=== PATIENT | male | born 1980 | race Hispanic/Latino ===

== ENCOUNTER 2017-12-04 22:38 | Emergency (ER) | payer OTHER ==
[2017-12-04] MEDS ORDERED: ASPIRIN 325 MG TABLET ONE (23:10)
[2017-12-04 23:16] LABS: BASOPHILS % (AUTO) 0.4 % (0.0-5.0); EOSINOPHILS % (AUTO) 4.8 % (0.0-8.0); HEMATOCRIT 35.3 % (42-54); MEAN CORPUSCULAR HEMOGLOBIN 27.8 pg (27.0-33.0); MEAN CORPUSCULAR VOLUME 81.7 fL (79-99); NEUTROPHILS % (AUTO) 64.8 % (40.0-77.0); PLATELET COUNT (AUTO) 258 K/uL (130-400); RED BLOOD CELL COUNT(AUTO) 4.32 MIL/uL (4.50-6.20); RED CELL DISTRIBUTION WIDTH 12.1 % (11.0-15.5)
[2017-12-04 23:28] LABS: ALBUMIN 3.5 g/dL (3.5-5.0); BILIRUBIN,TOTAL 0.4 mg/dL (0.2-1.0); CREATININE 1.4 mg/dL (0.5-1.5); POTASSIUM 4.4 mmol/L (3.5-5.1); TOTAL PROTEIN, SERUM 7.9 g/dL (6.0-8.3)
[2017-12-04] MEDS ORDERED: LIDOCAINE HCL 2% VISCOUS 15 ML UDCUP ONE (23:30)
[2017-12-04] MEDS ORDERED: MAG HYDROX/AL HYDROX/SIMETH ES 30 ML SUSP UDCUP ONE (23:30)
[2017-12-04] MEDS ORDERED: SODIUM CHLORIDE 0.9% 1000ML 1,000 ML IV ONE ×2 (23:31→23:43)
[2017-12-04] MEDS ORDERED: ONDANSETRON HCL 4 MG/2 ML VIAL ONE (23:31)
[2017-12-04] MEDS ORDERED: INSULIN HUMULIN R 100 UNIT/ML 3ML ONE (23:45)
[2017-12-04 23:56] LABS: AMPHET/METH SCREEN,URINE NEGATIVE (NEGATIVE); BARBITURATE SCREEN, URINE NEGATIVE (NEGATIVE); BENZODIAZEPINES SCREEN,URINE NEGATIVE (NEGATIVE); CANNABINOID SCREEN,URINE NEGATIVE (NEGATIVE); COCAINE SCREEN,URINE NEGATIVE (NEGATIVE); OPIATE SCREEN,URINE NEGATIVE (NEGATIVE); PHENCYCLIDINE SCREEN,URINE NEGATIVE (NEGATIVE)
[2017-12-05 00:19] LABS: B-TYPE NATRIURETIC PEPTIDE 24 pg/mL (0-100)
[2017-12-05] MEDS ORDERED: IOHEXOL-350 75 ML VIAL IV ONE (02:42)
== END 2017-12-05 04:24 | disposition home or self-care (01) ==
LOC: EDH 22:38
DX: R07.89 Other chest pain (principal); J18.8 Other pneumonia, unspecified organism; E11.9 Type 2 diabetes mellitus without complications
CPT/HCPCS: 36415; 71045; 71275; 80053; 80305; 82550; 83880; 84484; 85025; 85378; 93005; 94761; 96372; 99285; J1815; J2405; J7030 ×2; Q9967

== ENCOUNTER 2019-05-16 17:34 | Inpatient (IN) | payer OTHER ==
[~2019-05-16] VITALS: Ht 162.6 cm; Wt 53.8 kg
[2019-05-16] MEDS ORDERED: SODIUM CHLORIDE 0.9% 1000ML 1,000 ML IV ONE ×2 (17:55→19:49)
[2019-05-16] MEDS ORDERED: ONDANSETRON HCL 4 MG/2 ML VIAL ONE (17:55)
[2019-05-16 18:06] LABS: BASOPHILS % (AUTO) 0.3 % (0.0-5.0); EOSINOPHILS % (AUTO) 0.1 % (0.0-8.0); HEMATOCRIT 39.2 % (42-54); LYMPHOCYTES % (AUTO) 9.7 % (21.0-51.0); MEAN CORPUSCULAR HEMOGLOBIN 26.6 pg (27.0-33.0); MEAN CORPUSCULAR HGB CONC 32.4 g/dL (32.0-36.0); MONOCYTES % (AUTO) 1.3 % (3.0-13.0); NEUTROPHILS % (AUTO) 87.5 % (40.0-77.0); PLATELET COUNT (AUTO) 298 K/uL (130-400); RED BLOOD CELL COUNT(AUTO) 4.78 MIL/uL (4.50-6.20); RED CELL DISTRIBUTION WIDTH 12.7 % (11.0-15.5); WHITE BLOOD COUNT (AUTO) 15.4 K/uL (4.8-10.8)
[2019-05-16] MEDS ORDERED: MORPHINE SULFATE 4 MG/1ML SYG ONE (18:12)
[2019-05-16] MEDS ORDERED: MORPHINE SULFATE 2 MG/ML 1ML SYG ONE (18:13)
[2019-05-16] MEDS ORDERED: METOCLOPRAMIDE 10 MG/2 ML VIAL ONE (18:14)
[2019-05-16 18:20] LABS: ALBUMIN 4.5 g/dL (3.5-5.0); BILIRUBIN,TOTAL 0.9 mg/dL (0.2-1.0); POTASSIUM 3.9 mmol/L (3.5-5.1); TOTAL PROTEIN, SERUM 8.9 g/dL (6.0-8.3)
[2019-05-16 18:35] LABS: ABG BASE EXCESS -16.9 mmol/L (-2.0-3.0); ABG HCO3 10.4 mmol/L (21.0-28.0); ABG OXYGEN SATURATION 95.6 % (95.0-99.0); ABG PCO2 30 mmHg (35-48)
[2019-05-16] MEDS ORDERED: CEFTRIAXONE SODIUM 1 GM ONE (18:57)
[2019-05-16] MEDS ORDERED: SODIUM CHLORIDE 0.9% 1000ML 2,000 ML IV ONE (18:57)
[2019-05-16] MEDS ORDERED: SODIUM CHLORIDE 0.9% 100 ML IV ONE ×2 (18:59→19:26)
[2019-05-16 19:17] LABS: APPEARANCE,URINE Clear (CLEAR); BILIRUBIN,URINE Negative (NEGATIVE); COLOR,URINE Yellow (YELLOW); GLUCOSE, URINE (UA) >=1000 mg/dL (NEGATIVE); KETONES,URINE >=80 mg/dL (NEGATIVE); LEUKOCYTE ESTERASE ,URINE Negative (NEGATIVE); NITRATE,URINE Negative (NEGATIVE); OCCULT BLOOD,URINE Small (NEGATIVE); PROTEIN,URINE POS 2+ mg/dL (NEGATIVE); UROBILINOGEN,URINE 0.2 mg/dL (0.2-1.0)
[2019-05-16 19:25] LABS: BACTERIA,URINE None Seen /HPF (None Seen); RBC,URINE 0-1 /HPF (0-1); SQUAMOUS EPITHELIAL CELL,UR 0-2 /HPF (0-2); WBC,URINE None Seen /HPF (0-1)
[2019-05-16] MEDS ORDERED: INSULIN HUMULIN R 100 UNIT/ML 3ML ONE (19:25)
[2019-05-16] MEDS ORDERED: POTASSIUM CHLORIDE 20MEQ/100ML 100 ML IV ONE (19:28)
[2019-05-16] MEDS ORDERED: LACTATED RINGERS 1000ML 2,000 ML IV ONE (20:05)
[2019-05-16] MEDS ORDERED: SODIUM BICARB 50MEQ 50ML VIAL IV SCH (20:15)
[2019-05-16] MEDS ORDERED: MAGNESIUM 2GM PREMIX 50ML 50 ML IV SCH (20:15)
[2019-05-16] MEDS ORDERED: INSULIN REGULAR, HUMAN 3ML 100 UNIT in SODIUM CHLORIDE 0.9% 99 ML IV PRN ×2 (20:15)
[2019-05-16] MEDS: LACTATED RINGERS 1000ML 1,000 ML IV SCH ×2 (20:15→21:16)
[2019-05-16] MEDS ORDERED: POTASSIUM CHLORIDE 10% ELIXIR 20 MEQ/15 ML UDCUP PO PRN (20:15)
[2019-05-16] MEDS ORDERED: SODIUM BICARB 50MEQ 50ML VIAL ONE (20:19)
[2019-05-16] MEDS ORDERED: HYDROMORPHONE 1 MG/1 ML AMP ONE (20:19)
[2019-05-16 22:18] LABS: CREATININE 1.4 mg/dL (0.5-1.5); POTASSIUM 4.5 mmol/L (3.5-5.1)
[2019-05-17] VITALS (20 sets, daily range): BP systolic 126–180; BP diastolic 79–104
[2019-05-17 03:44] LABS: BASOPHILS % (AUTO) 0.2 % (0.0-5.0); HEMATOCRIT 31.4 % (42-54); LYMPHOCYTES % (AUTO) 9.3 % (21.0-51.0); MEAN CORPUSCULAR HEMOGLOBIN 26.3 pg (27.0-33.0); MEAN CORPUSCULAR HGB CONC 32.8 g/dL (32.0-36.0); MEAN CORPUSCULAR VOLUME 80.1 fL (79-99); MONOCYTES % (AUTO) 9.7 % (3.0-13.0); NEUTROPHILS % (AUTO) 80.1 % (40.0-77.0); PLATELET COUNT (AUTO) 222 K/uL (130-400); RED BLOOD CELL COUNT(AUTO) 3.92 MIL/uL (4.50-6.20); RED CELL DISTRIBUTION WIDTH 13.2 % (11.0-15.5); WHITE BLOOD COUNT (AUTO) 15.6 K/uL (4.8-10.8)
[2019-05-17 03:54] LABS: CREATININE 1.4 mg/dL (0.5-1.5); POTASSIUM 3.9 mmol/L (3.5-5.1)
[2019-05-17 04:08] LABS: ALBUMIN 3.3 g/dL (3.5-5.0); BILIRUBIN,TOTAL 0.7 mg/dL (0.2-1.0); PHOSPHORUS 2.5 mg/dL (2.5-4.9); TOTAL PROTEIN, SERUM 7.3 g/dL (6.0-8.3)
[2019-05-17] MEDS ORDERED: ONDANSETRON HCL 4 MG/2 ML VIAL ONE ×2 (05:22→09:29)
[2019-05-17 07:32] LABS: CREATININE 1.4 mg/dL (0.5-1.5); POTASSIUM 3.8 mmol/L (3.5-5.1)
[2019-05-17 09:11] LABS: AMPHET/METH SCREEN,URINE NEGATIVE (NEGATIVE); BARBITURATE SCREEN, URINE NEGATIVE (NEGATIVE); BENZODIAZEPINES SCREEN,URINE NEGATIVE (NEGATIVE); CANNABINOID SCREEN,URINE NEGATIVE (NEGATIVE); COCAINE SCREEN,URINE NEGATIVE (NEGATIVE); OPIATE SCREEN,URINE NEGATIVE (NEGATIVE); PHENCYCLIDINE SCREEN,URINE NEGATIVE (NEGATIVE)
[2019-05-17] MEDS ORDERED: SODIUM CHLORIDE 0.9% 100 ML IV ONE (09:32)
[2019-05-17] MEDS ORDERED: CEFTRIAXONE SODIUM 1 GM ONE (09:32)
[2019-05-17 13:37] LABS: CREATININE 1.5 mg/dL (0.5-1.5); POTASSIUM 3.8 mmol/L (3.5-5.1)
[2019-05-17] MEDS ORDERED: PROMETHAZINE HCL 25 MG/ML 1ML AMPULE IM SCH (15:00)
[2019-05-17] MEDS: ONDANSETRON HCL 4 MG/2 ML VIAL IVP PRN ×2 (15:28→22:08)
[2019-05-17 16:28] LABS: CREATININE 1.6 mg/dL (0.5-1.5); MAGNESIUM 2.2 mg/dL (1.80-2.40); POTASSIUM 3.5 mmol/L (3.5-5.1)
[2019-05-17] MEDS ORDERED: METOCLOPRAMIDE 10 MG/2 ML VIAL ONE (16:58)
[2019-05-17] MEDS: LIDOCAINE HCL-MPF 1% 2ML VIAL IJ PRN (17:03)
[2019-05-17] MEDS: POTASSIUM CHLORIDE 20MEQ/100ML 100 ML IV PRN (17:03)
--- NOTE | 2019-05-17 17:21 | NUR ---
INITIAL SW met with patient and spouse. Patient lives with spouse and two children. No home services. DME: [employer] (ins). Patient is able to complete ADL's independently and drives. PCP is Dr. Oh Higuera. Pharmacy is [facility] located in [place]. DCP is home. Patient has no insurance or benefits. He is a [place] citizen and has worked in the [place]. Patient was provided with community resources for post hospitalization follow up. Patient was also provided with Good RX card for prescriptions and educated on [facility] $4 medication program and [facility] $5 medication program. Patient is being assisted by [employer] for financial matters. Addendum: 05/17/19 at 1723 by TERE JI Amended: Links added.
[2019-05-17] MEDS: SODIUM BICARB IVP SCH (17:23)
[2019-05-17] MEDS: NACL IVP SCH (17:23)
[2019-05-17] MEDS: DEXTROSE IVP SCH (17:23)
[2019-05-17] MEDS: SYRING IVP SCH (17:23)
--- NOTE | 2019-05-17 17:26 | NUR ---
PT HAS INTRACTABLE N/V... I INFORMED Lazarus SIDDIQUI MAGNETIC DOCTOR AND RECEIVED ORDERS FOR REGLAN PRN AND TO CHECK BMP'S EVERY 6HRS. BMP/MAG ORDERS IN PLACE ALREADY
--- NOTE | 2019-05-17 19:12 | NUR ---
HAND OFF REPORT GIVEN TO TAMY SHIRLEY
[2019-05-17 22:08] LABS: CREATININE 1.6 mg/dL (0.5-1.5); MAGNESIUM 2.4 mg/dL (1.80-2.40); POTASSIUM 3.9 mmol/L (3.5-5.1)
[2019-05-17] MEDS: METOCLOPRAMIDE 10 MG/2 ML VIAL IVP PRN (23:44)
[2019-05-18] VITALS (34 sets, daily range): BP systolic 134–180; BP diastolic 74–114
[2019-05-18] MEDS: DEXTROSE IVP SCH (02:58)
[2019-05-18] MEDS: NACL IVP SCH (02:58)
[2019-05-18] MEDS: SODIUM BICARB IVP SCH (02:58)
[2019-05-18] MEDS: SYRING IVP SCH (02:58)
[2019-05-18] MEDS: ONDANSETRON HCL 4 MG/2 ML VIAL IVP PRN ×2 (03:07→09:36)
[2019-05-18 05:38] LABS: CREATININE 1.5 mg/dL (0.5-1.5); MAGNESIUM 2.4 mg/dL (1.80-2.40); POTASSIUM 3.5 mmol/L (3.5-5.1)
[2019-05-18] MEDS: METOCLOPRAMIDE 10 MG/2 ML VIAL IVP PRN ×2 (05:52→14:44)
[2019-05-18] MEDS: POTASSIUM CHLORIDE 20 MEQ ERTAB PO PRN (08:36)
[2019-05-18] MEDS: CEFTRIAXONE SODIUM 1 GM IVP SCH (08:37)
[2019-05-18] MEDS ORDERED: SODIUM CHLORIDE 0.9% 1000ML 1,000 ML IV ONE (08:53)
[2019-05-18] MEDS ORDERED: MULT-1333 PO (10:00)
[2019-05-18] MEDS ORDERED: EMPA1TAB7 PO (10:00)
[2019-05-18] MEDS ORDERED: CYCL5TAB PO (10:00)
[2019-05-18] MEDS ORDERED: PIOG45TA64 PO (10:00)
[2019-05-18] MEDS ORDERED: PRAV40TA3 PO (10:00)
[2019-05-18] MEDS ORDERED: LISI10TA7 PO (10:00)
[2019-05-18] MEDS ORDERED: ARGI500C9 PO (10:00)
[2019-05-18 10:27] LABS: CREATININE 1.6 mg/dL (0.5-1.5); MAGNESIUM 2.4 mg/dL (1.80-2.40); POTASSIUM 3.6 mmol/L (3.5-5.1)
[2019-05-18] MEDS ORDERED: LACTATED RINGERS 1000ML 1,000 ML IV ONE (12:43)
[2019-05-18] MEDS: LACTATED RINGERS 1000ML 1,000 ML IV SCH ×2 (13:35→23:30)
[2019-05-18] MEDS: HYDRALAZINE HCL 20 MG/ML VIAL IV PRN (13:55)
[2019-05-18] MEDS: PROMETHAZINE HCL 25 MG/ML 1ML AMPULE IM PRN ×2 (15:07→21:41)
[2019-05-18] MEDS: INSULIN HUMULIN R 100 UNIT/ML 3ML SQ SCH ×2 (16:30→21:55)
[2019-05-18] MEDS: METOCLOPRAMIDE 10 MG/2 ML VIAL IVP SCH ×2 (17:57→23:30)
[2019-05-18 21:13] LABS: CREATININE 1.5 mg/dL (0.5-1.5); POTASSIUM 3.6 mmol/L (3.5-5.1)
[2019-05-18] MEDS: POTASSIUM CHLORIDE 20MEQ/100ML 100 ML IV PRN (21:40)
[2019-05-18] MEDS: LIDOCAINE HCL-MPF 1% 2ML VIAL IJ PRN (21:40)
--- NOTE | 2019-05-18 23:15 | NUR ---
Judith ROBLES , KATHERINE NOTIFIED OF LAB RESULTS NA 135, K 3.6, CL 110, CO2 29, BUN 31, CR 1.5 GLUCOSE 195, SERUM KETONES 4.7.INSULIN IV GTT OFF SINCE AM, LR AT 100ML/HR, CLEAR LIQUID DIET TOLERATED. NEW ORDERS RECEIVED FOR BMP Q 6 HRS AND SERUM KETONES Q 8 HR UNTIL ANION GAP CLOSES. Addendum: 05/19/19 at 4 by BRENNAN GOLDSMITH RN RN SHOULD SAY IV INSULIN DRIP OFF TODAY
[2019-05-18] MEDS ORDERED: ACETAMINOPHEN 325 MG TAB ONE (23:27)
[2019-05-18] MEDS ORDERED: ACETAMINOPHEN 325 MG TAB PO PRN (23:30)
[2019-05-19] VITALS (27 sets, daily range): BP systolic 127–183; BP diastolic 72–116
[2019-05-19] MEDS: HYDRALAZINE HCL 20 MG/ML VIAL IV PRN ×2 (03:01→16:35)
[2019-05-19 04:35] LABS: ALBUMIN 3.2 g/dL (3.5-5.0); CREATININE 1.6 mg/dL (0.5-1.5); HEMATOCRIT 40.4 % (42-54); MAGNESIUM 2.4 mg/dL (1.80-2.40); MEAN CORPUSCULAR HEMOGLOBIN 25.9 pg (27.0-33.0); MEAN CORPUSCULAR HGB CONC 30.7 g/dL (32.0-36.0); MEAN CORPUSCULAR VOLUME 84.5 fL (79-99); PLATELET COUNT (AUTO) 240 K/uL (130-400); POTASSIUM 3.9 mmol/L (3.5-5.1); RED BLOOD CELL COUNT(AUTO) 4.78 MIL/uL (4.50-6.20); RED CELL DISTRIBUTION WIDTH 13.3 % (11.0-15.5); TOTAL PROTEIN, SERUM 7.5 g/dL (6.0-8.3); WHITE BLOOD COUNT (AUTO) 15.1 K/uL (4.8-10.8)
[2019-05-19] MEDS: METOCLOPRAMIDE 10 MG/2 ML VIAL IVP SCH ×4 (04:38→22:33)
[2019-05-19] MEDS: INSULIN HUMULIN R 100 UNIT/ML 3ML SQ SCH ×4 (06:13→21:00)
[2019-05-19] MEDS: LISINOPRIL 10 MG TABLET PO SCH (08:27)
[2019-05-19] MEDS: CEFTRIAXONE SODIUM 1 GM IVP SCH (08:27)
[2019-05-19] MEDS: LACTATED RINGERS 1000ML 1,000 ML IV SCH ×2 (09:00→21:19)
[2019-05-19 10:15] LABS: CREATININE 1.5 mg/dL (0.5-1.5); POTASSIUM 3.7 mmol/L (3.5-5.1)
[2019-05-19] MEDS: PROMETHAZINE HCL 25 MG/ML 1ML AMPULE IM PRN ×2 (12:26→18:57)
[2019-05-19 13:27] LABS: ABG BASE EXCESS -0.5 mmol/L (-2.0-3.0); ABG HCO3 24.4 mmol/L (21.0-28.0); ABG OXYGEN SATURATION 96.6 % (95.0-99.0); ABG PCO2 41 mmHg (35-48)
[2019-05-19] MEDS ORDERED: PHARMACY COMMUNICATION MISC SCH (14:30)
[2019-05-19] MEDS ORDERED: SUCRALFATE 1 GM/10 ML ONE (16:11)
[2019-05-19] MEDS ORDERED: PANTOPRAZOLE SODIUM 40 MG TABLET.DR ONE (16:13)
[2019-05-19 16:55] LABS: CREATININE 1.5 mg/dL (0.5-1.5); POTASSIUM 3.7 mmol/L (3.5-5.1)
[2019-05-19] MEDS ORDERED: FAMOTIDINE/PF 20 MG/2 ML VIAL IV SCH (21:00)
[2019-05-19] MEDS: SUCRALFATE 1 GM/10 ML PO SCH (21:13)
[2019-05-19] MEDS: PANTOPRAZOLE SODIUM 40 MG TABLET.DR PO SCH (21:13)
[2019-05-19 22:20] LABS: CREATININE 1.5 mg/dL (0.5-1.5); POTASSIUM 3.5 mmol/L (3.5-5.1)
[2019-05-19] MEDS: LIDOCAINE HCL-MPF 1% 2ML VIAL IJ PRN (22:41)
[2019-05-19] MEDS: POTASSIUM CHLORIDE 20MEQ/100ML 100 ML IV PRN (22:41)
[2019-05-20] VITALS (7 sets, daily range): BP systolic 141–156; BP diastolic 78–100
[2019-05-20] MEDS: HYDRALAZINE HCL 20 MG/ML VIAL IV PRN (00:21)
[2019-05-20] MEDS: PROMETHAZINE HCL 25 MG/ML 1ML AMPULE IM PRN ×3 (00:52→22:36)
--- NOTE | 2019-05-20 00:55 | NUR ---
HTN PATIENT HYPERTENSIVE BP 173/108. PRN HYDRALAZINE GIVEN. REPEAT BLOOD PRESSURE 144/78. PATIENT CONTINUES WITH NAUSEA/VOMITING. SCHEDULED 2300 REGLAN GIVEN EARLIER, 0052 PRN PROMETHAZINE GIVEN, ADMINISTERED TO LEFT GLUTEAL.
--- NOTE | 2019-05-20 01:25 | NUR ---
TRANSFER 010 REPORT GIVEN TO FERN MARADIAGA. 0015 PATIENT TRANSFERRED VIA WHEELCHAIR TO ROOM 328. POSITIONED TO COMFORT IN BED. SPOUSE AT THE BEDSIDE. RESUMED LR AND K+ INFUSION. PATIENT AAOX3 BREATHING REGULAR AND UNLABORED ON ROOM AIR. NO ACUTE SIGNS OR SYMPTOMS OF DISTRESS NOTED. FERN MARADIAGA AT THE BEDSIDE. Addendum: 05/20/19 at 0147 by SANJIV OLIVAREZ RN RN TIME OF TRANSFER 011
[2019-05-20] MEDS: METOCLOPRAMIDE 10 MG/2 ML VIAL IVP SCH ×4 (04:43→20:33)
[2019-05-20] MEDS: LACTATED RINGERS 1000ML 1,000 ML IV SCH ×3 (04:44→20:36)
[2019-05-20 06:19] LABS: BASOPHILS % (AUTO) 0.1 % (0.0-5.0); HEMATOCRIT 39.3 % (42-54); LYMPHOCYTES % (AUTO) 13.6 % (21.0-51.0); MEAN CORPUSCULAR HEMOGLOBIN 25.8 pg (27.0-33.0); MEAN CORPUSCULAR HGB CONC 30.3 g/dL (32.0-36.0); MEAN CORPUSCULAR VOLUME 85.2 fL (79-99); MONOCYTES % (AUTO) 4.9 % (3.0-13.0); NEUTROPHILS % (AUTO) 80.5 % (40.0-77.0); PLATELET COUNT (AUTO) 227 K/uL (130-400); RED BLOOD CELL COUNT(AUTO) 4.61 MIL/uL (4.50-6.20); RED CELL DISTRIBUTION WIDTH 13.5 % (11.0-15.5); WHITE BLOOD COUNT (AUTO) 9.6 K/uL (4.8-10.8)
[2019-05-20 06:27] LABS: CREATININE 1.5 mg/dL (0.5-1.5); POTASSIUM 4.4 mmol/L (3.5-5.1)
[2019-05-20] MEDS: INSULIN HUMULIN R 100 UNIT/ML 3ML SQ SCH ×4 (06:32→21:02)
[2019-05-20] MEDS: SUCRALFATE 1 GM/10 ML PO SCH ×2 (10:55→20:33)
[2019-05-20] MEDS: PANTOPRAZOLE SODIUM 40 MG TABLET.DR PO SCH ×2 (10:56→20:33)
[2019-05-20] MEDS: CEFTRIAXONE SODIUM 1 GM IVP SCH (10:56)
[2019-05-20] MEDS: LISINOPRIL 10 MG TABLET PO SCH (10:56)
[2019-05-20] MEDS ORDERED: LATA2.5D2 OP (21:43)
[2019-05-21] VITALS (13 sets, daily range): BP systolic 121–171; BP diastolic 79–111
[2019-05-21] MEDS: METOCLOPRAMIDE 10 MG/2 ML VIAL IVP SCH ×4 (03:59→21:05)
[2019-05-21] MEDS: LACTATED RINGERS 1000ML 1,000 ML IV SCH ×2 (05:42→21:06)
[2019-05-21 06:06] LABS: BASOPHILS % (AUTO) 0.3 % (0.0-5.0); EOSINOPHILS % (AUTO) 1.3 % (0.0-8.0); MEAN CORPUSCULAR HEMOGLOBIN 25.8 pg (27.0-33.0); MEAN CORPUSCULAR HGB CONC 31.3 g/dL (32.0-36.0); MEAN CORPUSCULAR VOLUME 82.6 fL (79-99); MONOCYTES % (AUTO) 6.2 % (3.0-13.0); NEUTROPHILS % (AUTO) 65.8 % (40.0-77.0); PLATELET COUNT (AUTO) 220 K/uL (130-400); RED BLOOD CELL COUNT(AUTO) 4.84 MIL/uL (4.50-6.20); RED CELL DISTRIBUTION WIDTH 12.6 % (11.0-15.5); WHITE BLOOD COUNT (AUTO) 9.4 K/uL (4.8-10.8)
--- NOTE | 2019-05-21 06:08 | NUR ---
patient continues to have nausea even with reglan given around the clock and phenergan IM given once. he spit yellow phlegm 3 times 10 ml for a total of 30 ml of phlegm
[2019-05-21 06:31] LABS: CREATININE 1.3 mg/dL (0.5-1.5)
[2019-05-21] MEDS: LISINOPRIL 10 MG TABLET PO SCH (09:00)
[2019-05-21] MEDS: SUCRALFATE 1 GM/10 ML PO SCH ×2 (09:00→21:05)
[2019-05-21] MEDS: PANTOPRAZOLE SODIUM 40 MG TABLET.DR PO SCH ×2 (09:00→21:05)
[2019-05-21] MEDS ORDERED: ONDANSETRON HCL 4 MG/2 ML VIAL ONE (10:57)
[2019-05-21] MEDS: CEFTRIAXONE SODIUM 1 GM IVP SCH (10:58)
[2019-05-21] MEDS ORDERED: ONDANSETRON HCL 4 MG/2 ML VIAL IVP PRN (11:15)
[2019-05-21] MEDS: INSULIN HUMULIN R 100 UNIT/ML 3ML SQ SCH ×3 (11:30→21:34)
[2019-05-21] MEDS: HYDRALAZINE HCL 20 MG/ML VIAL IV PRN ×2 (12:52→21:33)
--- NOTE | 2019-05-21 15:35 | NUR ---
NUTRITION EDUCATION COMPLETED RD PROVIDED DIABETES MEDICAL NUTRITION THERAPY. ALL QUESTIONS WERE ANSWERED. PT AND FAMILY VERBALIZED UNDERSTANDING. EDUCATION MATERIALS WERE PROVIDED FOR HOME. BG [employer] GOALS WERE ESTABLISHED WITH PT. Addendum: 05/21/19 at [address] Amended: Links added.
--- NOTE | 2019-05-21 15:39 | NUR ---
RD NOTIFICATION DIET: 75GMCCD. PO INTAKE 50-75% AND HAS STEADY APPETITE. LABS REVIEWED. MEDS REVIEWED. SKIN IS INTACT. PT UNABLE TO DETERMINE FOODS THAT RAISE BG LEVELS. RD PROVIDED DIABETES NUTRITION THERAPY. RD PROVIDED DIABETES DIET AND NUTRITION EDUCATION ENCOURAGE ADEQUATE HYDRATION DAILY MONITOR LABS, PO INTAKE AND BM Addendum: 05/21/19 at [address] Amended: Links added.
[2019-05-22] VITALS: BP 118/75
[2019-05-22 04:00] VITALS: BP 153/95
[2019-05-22] MEDS: METOCLOPRAMIDE 10 MG/2 ML VIAL IVP SCH (05:04)
[2019-05-22 05:09] LABS: HEMATOCRIT 34.5 % (42-54); MEAN CORPUSCULAR HEMOGLOBIN 25.7 pg (27.0-33.0); MEAN CORPUSCULAR HGB CONC 31.6 g/dL (32.0-36.0); MEAN CORPUSCULAR VOLUME 81.4 fL (79-99); PLATELET COUNT (AUTO) 162 K/uL (130-400); RED BLOOD CELL COUNT(AUTO) 4.24 MIL/uL (4.50-6.20); RED CELL DISTRIBUTION WIDTH 12.5 % (11.0-15.5); WHITE BLOOD COUNT (AUTO) 8.8 K/uL (4.8-10.8)
[2019-05-22] MEDS: LACTATED RINGERS 1000ML 1,000 ML IV SCH (05:09)
[2019-05-22 05:23] LABS: CREATININE 1.1 mg/dL (0.5-1.5); POTASSIUM 3.7 mmol/L (3.5-5.1)
[2019-05-22] MEDS: INSULIN HUMULIN R 100 UNIT/ML 3ML SQ SCH (05:47)
[2019-05-22] MEDS: POTASSIUM CHLORIDE 20 MEQ ERTAB PO PRN (05:58)
[2019-05-22 07:00] VITALS: BP 142/86
--- NOTE | 2019-05-22 13:20 | NUR ---
D/C instructions provided; bilateral SL to each hand removed intact, no redness or swelling at site. D/C instructions provided for hpylori, gastroparesis and med regimen; prescrptions provided to pt., copies in chart. Pt. refused f/u appt; states he has appt. with PMD in am and will f/u with observation assistant at a later date. DC;d to self care via private car without incident-no questions or complaints.
== END 2019-05-22 13:20 | disposition home or self-care (01) | DRG 638 ==
LOC: EDH 17:34 → EDHIP 17:35 → 2BH 05-17 14:15 → 3DH 05-20 01:29
PROVIDERS: ADMIT Internal Medicine Infectious Disease; ATTEND Internal Medicine Infectious Disease
PROC: 0DB98ZX Excision of Duodenum, Via Natural or Artificial Opening Endoscopic, Diagnostic (ICD-10-PCS; principal; 2019-05-21)
PROC: 0DB68ZX Excision of Stomach, Via Natural or Artificial Opening Endoscopic, Diagnostic (ICD-10-PCS; 2019-05-21)
PROC: 0DB38ZX Excision of Lower Esophagus, Via Natural or Artificial Opening Endoscopic, Diagnostic (ICD-10-PCS; 2019-05-21)
DX: E11.10 Type 2 diabetes mellitus with ketoacidosis without coma (principal); N17.9 Acute kidney failure, unspecified; E87.0 Hyperosmolality and hypernatremia; K22.10 Ulcer of esophagus without bleeding; E86.0 Dehydration; D72.829 Elevated white blood cell count, unspecified; B96.81 Helicobacter pylori [H. pylori] as the cause of diseases classified elsewhere; E11.22 Type 2 diabetes mellitus with diabetic chronic kidney disease; E11.43 Type 2 diabetes mellitus with diabetic autonomic (poly)neuropathy; H40.10X0 Unspecified open-angle glaucoma, stage unspecified; I12.9 Hypertensive chronic kidney disease with stage 1 through stage 4 chronic kidney disease, or unspecified chronic kidney disease; K29.70 Gastritis, unspecified, without bleeding; K31.84 Gastroparesis; N18.9 Chronic kidney disease, unspecified; E87.8 Other disorders of electrolyte and fluid balance, not elsewhere classified; K44.9 Diaphragmatic hernia without obstruction or gangrene; K21.0 Gastro-esophageal reflux disease with esophagitis; D50.9 Iron deficiency anemia, unspecified; Z79.4 Long term (current) use of insulin; Z80.0 Family history of malignant neoplasm of digestive organs; Z82.3 Family history of stroke; Z82.49 Family history of ischemic heart disease and other diseases of the circulatory system; Z83.3 Family history of diabetes mellitus; Z91.19 Patient's noncompliance with other medical treatment and regimen
CPT/HCPCS: 36415; 36600; 43239; 71045; 74176; 78264; 80048; 80053; 80061; 80305; 81001; 82010; 82803; 82948; 83605; 83690; 83735; 84100; 84484; 85025; 85027; 86677; 87040; 93005; 99291; A4606; A9541; G0378; J0360; J0696; J1170; J1815; J2270; J2405; J2550; J2765; J3480; J3490; J7030; J7042; J7120